=== PATIENT | female | born 1940 ===

== ENCOUNTER → 2018-05-07 | Outpatient (CLI) | payer OTHER ==
[~2018-05-07] MED LIST: AVAPRO150 MG; AVAPRO150 MG PO; CARDIZEM CD240 MG PO; CIPRO500 MG PO; GABAPENTIN300 MG; VYTORIN 10/20 T1 TAB PO
== END | disposition home or self-care (01) ==
LOC: NUCLEAR 07:00
DX: R06.09 Other forms of dyspnea (principal); R07.89 Other chest pain; I11.0 Hypertensive heart disease with heart failure
CPT/HCPCS: 78452; 93017; A9500; J0153

== ENCOUNTER 2018-12-25 09:24 | Emergency (ER) | payer OTHER ==
[~2018-12-25] VITALS: Ht 157.5 cm; Wt 69.4 kg
[2018-12-25] MEDS ORDERED: ADULT ASPIRIN81 MG PO (09:53)
[2018-12-25] MEDS ORDERED: PLAVIX75 MG (09:53)
[2018-12-25] MEDS ORDERED: LIPITOR20 MG (09:54)
[2018-12-25] MEDS ORDERED: PEPCID AC20 MG PO (09:54)
[2018-12-25] MEDS ORDERED: INTESTINEX680 M1 PO (13:08)
[2018-12-25] MEDS ORDERED: FLAGYL500MG PO (13:08)
[2018-12-25] MEDS ORDERED: ULTRACET PO (13:08)
[2018-12-25] MEDS ORDERED: CIPRO500 MG PO (13:08)
== END 2018-12-25 13:40 | disposition home or self-care (01) ==
LOC: ER 09:24
DX: K57.32 Diverticulitis of large intestine without perforation or abscess without bleeding (principal); K80.80 Other cholelithiasis without obstruction; R10.32 Left lower quadrant pain